=== PATIENT | male | born 1990 | race African-American/Black ===

== ENCOUNTER 2022-10-15 09:44 | Outpatient (CLI) | payer BC, SELFPAY ==
--- NOTE | ~2022-10-15 | XR_ITS ---
EXAMINATION: XR ankle RT min 3V INDICATION: Right ankle pain TECHNIQUE: Four views of the right ankle are obtained. COMPARISON: None available FINDINGS: There is medial soft tissue swelling of ankle. Bone alignment is normal. No acute fracture is identified. Heterotopic ossification distal to the lateral malleolus may reflect prior avulsion in jury or an os subfibulare. IMPRESSION: 1. Soft tissue swelling without acute osseous abnormality. Reviewed, dictated and finalized at location L.
== END 2022-10-15 09:45 | disposition home or self-care (01) ==
PROVIDERS: PCP Family Medicine; Visit Provider Physician Assistant
DX: S93.409A Sprain of unspecified ligament of unspecified ankle, initial encounter (principal); X58.XXXA Exposure to other specified factors, initial encounter
CPT/HCPCS: 73610